=== PATIENT | male | born 1985 | race Caucasian/White ===

== ENCOUNTER 2020-03-06 05:46 | Emergency (ER) | payer OTHER, BC ==
[2020-03-06] MEDS ORDERED: IBUPROFEN600 MG PO (06:52)
== END 2020-03-06 06:53 | disposition home or self-care (01) ==
LOC: ER1 05:46
DX: S01.81XA Laceration without foreign body of other part of head, initial encounter (principal); S93.401A Sprain of unspecified ligament of right ankle, initial encounter; S83.401A Sprain of unspecified collateral ligament of right knee, initial encounter; F17.290 Nicotine dependence, other tobacco product, uncomplicated; V49.40XA Driver injured in collision with unspecified motor vehicles in traffic accident, initial encounter; Y92.410 Unspecified street and highway as the place of occurrence of the external cause
CPT/HCPCS: 73610; 99283